=== PATIENT | female | born 1995 | race Asian ===

== ENCOUNTER 2017-11-02 10:51 | Emergency (ER) | payer SELFPAY ==
[2017-11-02 10:59] VITALS: BP 120/86
--- NOTE | 2017-11-02 11:21 | EDPHY ---
H & P Time Seen by Provider: 11/02/17 11:13 HPI/ROS: CHIEF COMPLAINT: Left periorbital edema and erythema HISTORY OF PRESENT ILLNESS: 22-year-old immunocompetent female with no corrective lens use history, no exposure to high speed projectiles, complaining of 24 hr of left periorbital edema, erythema. Also complaining of left submandibular adenopathy and pain. No antecedent or concurrent URI symptoms. No pain with extraocular movements. No visual acuity changes. No drainage. No injection. PHYSICAL EXAM (Prior to examination, patient consented to physical exam, hands were washed and my usual and customary physical exam procedures followed) 1) GENERAL: Well-developed, well-nourished, alert and oriented. Appears to be in no acute distress. 2) HEAD: Normocephalic 3) HEENT: sclera anicteric. No pain with extraocular movements. No proptosis. Left periorbital erythema and induration and edema is noted. There is no injection of the left conjunctiva. There is no crepitus. There are no lesions or vesicles. There are no lesions or vesicles on her face, scalp, ear. The left ear is clear with no signs of otitis media or otitis externa.. Oropharynx is clear. No lesions. Nasolabial folds are symmetrical. 4) LUNGS: Breathing comfortably. [5) NECK: Tender left submandibular adenopathy. Smoking Status: Never smoked Constitutional: Initial Vital Signs Temperature (C) 36.8 C 11/02/17 10:57 Heart Rate 59 L 11/02/17 10:57 Respiratory Rate 16 11/02/17 10:57 Blood Pressure 120/86 H 11/02/17 10:57 O2 Sat (%) 96 11/02/17 10:57 O2 Delivery Mode Room Air Allergies/Adverse Reactions: No Known Allergies Allergy (Unverified 11/02/17 10:57) Home Medications: Medication Instructions Recorded Cephalexin [Keflex] 500 mg PO TID 10 Days cap 11/02/17 Sulfamethox/Tmp 800/160 mg 1 tab PO BID@1000,2200 10 Days tab 11/02/17 [Bactrim Ds] MDM/Departure - MDM ED Course/Re-evaluation: I think that orbital cellulitis is less than likely in the absence of pain with extraocular movements, absence of proptosis. We discussed possibility of environmental allergy. Recommended Benadryl. We also discussed possibility of periorbital cellulitis and I recommended initiation of antibiotic therapy. I do not think that hospitalization is indicated. Not think that imaging is indicated. Doubt zoster. She feels comfortable being discharged. I saw this patient independently based on established practice protocols. Care of patient under supervision of secondary supervising physician Dr Loera . Differential Diagnosis: In no particular order including but not limited to periorbital cellulitis, orbital cellulitis, allergic conjunctivitis - Depart Disposition: Home, Routine, Self-Care Clinical Impression: Periorbital cellulitis of left eye Condition: Good Instructions: Periorbital Cellulitis in Adults (ED) Additional Instructions: Return to the ER if you develop pain with eye movements, sensitivity to light, or any other symptoms that concern you. Prescriptions: Cephalexin [Keflex] 500 mg PO TID 10 Days cap Sulfamethox/Tmp 800/160 mg [Bactrim Ds] 1 tab PO BID@1000,2200 10 Days tab Referrals: [facility] [Clinic] - 2-3 days, call for appt.
== END 2017-11-02 11:34 | disposition home or self-care (01) ==
DX: L03.211 Cellulitis of face (principal)